=== PATIENT | male | born 1955 | race Caucasian/White ===

== ENCOUNTER 2018-06-17 19:39 | Emergency (ER) | payer SELFPAY ==
[~2018-06-17] VITALS: Ht 182.9 cm; Wt 106.6 kg
--- NOTE | 2018-06-17 20:32 | PHYS DOC ---
Past History Past Medical History: GERD, Hypertension, [place] Past Surgical History: Tonsillectomy Alcohol Use: Rarely Drug Use: None Adult General Chief Complaint Chief Complaint: Palpitations [facility] HPI 62-year-old male presents with palpitations. Patient states that he started feeling a hard or double beat in his chest about 2 hours ago. He has had palpitations in the past, and he was told that they were benign. He has not had them in a while. Today he was more concerned about it because he had some mid back discomfort about 30 minutes after they started and they're not going away as quickly as usual. The patient had some feeling of chills with a "hot head, and cold hands" while he was eating dinner. It has improved at this time. He believes the palpitations are decreasing in frequency. He did take an Ativan prior to arrival. The patient has a cardiac history. 2 stents placed 10 years ago. His last stress test was one year ago and was reported to be non- concerning. He denies overt chest pain or shortness of breath. He denies fever. Review of Systems Review of Systems Constitutional: Denies fever or chills [] Eyes: Denies change in visual acuity, redness, or eye pain [] HENT: Denies nasal congestion or sore throat [] Respiratory: Denies cough or shortness of breath [] Cardiovascular: No additional information not addressed in HPI [] GI: Denies abdominal pain, nausea, vomiting, bloody stools or diarrhea [] : Denies dysuria or hematuria [] Musculoskeletal: Denies back pain or joint pain [] Integument: Denies rash or skin lesions [] Neurologic: Denies headache, focal weakness or sensory changes [] Endocrine: Denies polyuria or polydipsia [] All other systems were reviewed and found to be within normal limits, except as documented in this note. Allergies Allergies Allergies Coded Allergies Type Severity Reaction Last Updated Verified fentanyl Allergy Severe 06/17/18 Yes Physical Exam Physical Exam Constitutional: Well developed, obese, well nourished, no acute distress, non- toxic appearance. [] HENT: Normocephalic, atraumatic, bilateral external ears normal, oropharynx moist, no oral exudates, nose normal. [] Eyes: PERRLA, EOMI, conjunctiva normal, no discharge. [] Neck: Normal range of motion, no tenderness, supple, no stridor. [] Cardiovascular:Heart rate regular rhythm, no murmur [] Lungs & Thorax: Bilateral breath sounds clear to auscultation [] Abdomen: Bowel sounds normal, soft, no tenderness, no masses, no pulsatile masses. [] Skin: Warm, dry, no erythema, no rash. [] Back: No tenderness, no CVA tenderness. [] Extremities: No tenderness, no cyanosis, no clubbing, ROM intact, no edema. [] Neurologic: Alert and oriented X 3, normal motor function, normal sensory function, no focal deficits noted. [] Psychologic: Affect normal, judgement normal, mood normal. [] Current Patient Data Vital Signs Vital Signs Date Time Temp Pulse Resp B/P (MAP) Pulse Ox O2 Delivery O2 Flow Rate FiO2 06/17/18 20:06 98.1 74 18 96 Room Air EKG EKG [] Radiology/Procedures Radiology/Procedures [] Impressions: Preliminary interpretation: No acute findings, no infiltrate, no pneumothorax, no focal consolidation Course & Med Decision Making Course & Med Decision Making Pertinent Labs and Imaging studies reviewed. (See chart for details) The only unusual beat seen in the patient's cardiac strips was the occasional PAC. They have decreased significant frequency. The patient states he is not feeling them anymore. The rest of his workup is negative. His chest x-ray is negative. His labs are unremarkable except for a glucose of just over 200. His troponin is negative. His EKG is needed for acute findings. He is stable for discharge at this time. [] Dragon Disclaimer Dragon Disclaimer This electronic medical record was generated, in whole or in part, using a voice recognition dictation system. Departure Departure: Referrals: PCP,KATHY (PCP) JAMIN BALL DO Jun 17, 2018 20:32
[2018-06-17 21:07] LABS: BASO # 0.1 x10^3/uL (0.0-0.2); BASO % 1 % (0-3); EOS # 0.2 x10^3/uL (0.0-0.7); EOS % 2 % (0-3); HEMOGLOBIN 16.8 g/dL (13.0-17.5); LYMPH # 2.5 x10^3/uL (1.0-4.8); LYMPH % 31 % (24-48); MEAN CORPUSCULAR HEMOGLOBIN 32 pg (25-35); MEAN CORPUSCULAR HGB CONC 36 g/dL (31-37); MEAN CORPUSCULAR VOLUME 89 fL (79-100); MONO # 0.8 x10^3/uL (0.0-1.1); MONO % 10 % (0-9); NEUT # 4.5 x10^3uL (1.8-7.7); NEUT % 56 % (31-73); PLATELET COUNT 211 x10^3/uL (140-400); RED BLOOD COUNT 5.31 x10^6/uL (4.30-5.70); RED CELL DISTRIBUTION WIDTH 13.5 % (11.5-14.5); WHITE BLOOD COUNT 8.1 x10^3/uL (4.0-11.0)
[2018-06-17 21:12] LABS: ALBUMIN 3.8 g/dL (3.4-5.0); ALBUMIN/GLOBULIN RATIO 1.2 (1.0-1.7); CALCIUM 9.5 mg/dL (8.5-10.1); CREATININE 1.2 mg/dL (0.7-1.3); GFR 61.3; POTASSIUM 3.7 mmol/L (3.5-5.1); TOTAL BILIRUBIN 0.7 mg/dL (0.2-1.0)
[2018-06-17 21:30] VITALS: BP 109/58
--- NOTE | 2018-06-18 02:13 | RAD ---
Chest AP portable at 1944: Reason for examination: Palpitations. The heart size is normal. Mediastinum is unremarkable. Lung machado are clear. No acute bony abnormalities are seen. Impression: No acute cardiopulmonary disease. Electronically signed by: Sanyd Palomino MD (06/18/2018 2:10 AM) [facility] [id number]
--- NOTE | 2018-06-18 06:09 | EKG ---
[address] [address] Test Date: 2018-06-17 Test Time: 19:50:26 Pat Name: MAIKEL PEREZ Department: Room: Gender: M [employer]el Se[employer]: : 1955 Requested By: JAMIN BALL Order Number: [id number] Reading MD: Mario Bolaños MD Measurements Intervals [place] Rate: 80 P: 28 ID: [id number] QRS: 78 QRSD: 84 T: 20 QT: 394 QTc: 458 Interpretive Statements SINUS RHYTHM PROBABLE PRIOR INFARCT Electronically Signed On 06-21-2018 12:06:38 CDT by Mario Bolaños MD
== END 2018-06-17 22:55 | disposition home or self-care (01) ==
LOC: ER 19:39
DX: R00.2 Palpitations (principal); M54.89 Other dorsalgia; K21.9 Gastro-esophageal reflux disease without esophagitis; I10 Essential (primary) hypertension; I25.2 Old myocardial infarction; Z88.8 Allergy status to other drugs, medicaments and biological substances
CPT/HCPCS: 36415; 71045; 80053; 84484; 85025; 93005; 99285

== ENCOUNTER 2020-07-11 20:32 | Emergency (ER) | payer SELFPAY ==
[~2020-07-11] VITALS: Ht 182.9 cm; Wt 104.5 kg
[2020-07-11 20:44] VITALS: BP 224/101
[2020-07-11] MEDS ORDERED: diazePAM 5 MG TABLET. PO ONE (20:45)
[2020-07-11] MEDS ORDERED: MORPHINE SULFATE 10 MG/ML SYRINGE. IM ONE (20:45)
[2020-07-11] MEDS ORDERED: methylPREDNISolone SOD SUCC PF 125 MG/2 ML VIAL. IM ONE (20:45)
[2020-07-11] MEDS ORDERED: NAPROXEN 500 MG TABLET PO ONE (20:45)
--- NOTE | 2020-07-11 20:55 | PHYS DOC ---
Past History Past Medical History: GERD, Hypertension, [place] (NISHANT MORALES APRN) Past Surgical History: Tonsillectomy (NISHANT MORALES APRN) Alcohol Use: Rarely Drug Use: None (NISHANT MORALES APRN) Adult General Chief Complaint Chief Complaint: BACK PAIN OR INJURY HPI HPI Patient is a 64-year-old male patient with previous history of low back pain currently on Robaxin who presents to the ED today complaining of 7-8 out of 10 left low back radiating to the left thigh that began yesterday. Patient denies any injuries but believes he could have pulled a muscle in his low back. Denies any loss of bowel/bladder function. Denies any numbness or tingling to bilateral lower extremities. He states he took his 's hydrocodone with minimal relief. (NISHANT MORALES APRN) Review of Systems Review of Systems Constitutional: Denies fever or chills [] Eyes: Denies change in visual acuity, redness, or eye pain [] HENT: Denies nasal congestion or sore throat [] Respiratory: Denies cough or shortness of breath [] Cardiovascular: No additional information not addressed in HPI [] GI: Denies abdominal pain, nausea, vomiting, bloody stools or diarrhea [] : Denies dysuria or hematuria [] Musculoskeletal: Reports left low back pain radiating to the left thigh Integument: Denies rash or skin lesions [] Neurologic: Denies headache, focal weakness or sensory changes [] All other systems were reviewed and found to be within normal limits, except as documented in this note. (NISHANT MORALES APRN) Current Medications Current Medications Current Medications Medications (Trade) Dose Ordered Sig/Renuka Start Time Stop Time Status Last Admin Dose Admin Diazepam (Valium) 5 mg 1X ONCE 07/11/20 20:45 07/11/20 20:48 DC Methylprednisolone Sodium Succinate (SOLU-Medrol 125MG VIAL) 125 mg 1X ONCE 07/11/20 20:45 07/11/20 20:48 DC Morphine Sulfate (Morphine 10mg Syringe) 5 mg 1X ONCE 20 20:45 07/11/20 20:48 DC Naproxen (Naprosyn) 500 mg 1X ONCE 07/11/20 20:45 07/11/20 20:48 DC (NISHANT MORALES APRN) Allergies Allergies Allergies Coded Allergies Type Severity Reaction Last Updated Verified fentanyl Allergy Severe 06/17/18 Yes (NISHANT MORALES APRN) Physical Exam Physical Exam Constitutional: Well developed, well nourished, no acute distress, non-toxic appearance. [] Abdomen: Bowel sounds normal, soft, no tenderness, no masses, no pulsatile masses. [] Skin: Warm, dry, no erythema, no rash. [] Back: Diffuse paraspinal muscle tenderness to the left lumbar spine, no midline lumbar spine tenderness, no CVA tenderness. Positive straight leg raise to the left lower extremity at 45 degrees. Extremities: No tenderness, no cyanosis, no clubbing, ROM intact, no edema. [] Neurologic: Alert and oriented X 3, normal motor function, normal sensory function, no focal deficits noted. [] Psychologic: Affect normal, judgement normal, mood normal. [] (NISHANT MORALES APRN) Current Patient Data Vital Signs Vital Signs Date Time Temp Pulse Resp B/P (MAP) Pulse Ox O2 Delivery O2 Flow Rate FiO2 07/11/20 20:44 97.5 88 18 224/101 (142) 94 Room Air (NISHANT MORALES APRN) EKG EKG [] (NISHANT MORALES APRN) Radiology/Procedures Radiology/Procedures [] (NISHANT MORALES APRN) Heart Score Risk Factors: Risk Factors: DM, Current or recent (<one month) smoker, HTN, HLP, family history of CAD, obesity. Risk Scores: Risk Factors: DM, Current or recent (<one month) smoker, HTN, HLP, family history of CAD, obesity. (NISHANT MORALES APRN) Course & Med Decision Making Course & Med Decision Making Pertinent Labs and Imaging studies reviewed. (See chart for details) This is a 64-year-old male patient presenting to the ED today with exacerbation of chronic low back pain. No known injury. Pain managed in the ED. Given prescription for pain medicine, follow-up with PCP next week. (NISHANT MORALES APRN) Dragon Disclaimer Dragon Disclaimer This electronic medical record was generated, in whole or in part, using a voice recognition dictation system. (NISHANT MORALES APRN) Departure Departure: Impression: Primary Impression: Low back pain Disposition: 01 DC HOME SELF CARE/HOMELESS Condition: STABLE Referrals: PCP,NO (PCP) follow up next week Patient Instructions: Back Pain, Adult, Sciatica, [id number] Additional Instructions: You were seen for back pain. Follow-up with your doctor next week. Take the prescribed medication as ordered. Scripts Methylprednisolone (MEDROL) 4 Mg Tab.ds.pk 1 PKG PO UD, #1 PKG Prov: MUTUNGNISHANT Castillo [employer] SUPERVIS[employer] 07/11/20 Hydrocodone/Acetaminophen (Hydrocodone-Acetamin 7.5-325) 1 Each Tablet 1 EACH PO Q6HRS for pain, #12 TAB Prov: NISHANT MORALES [employer] SUPER[employer] 07/11/20 Attending Co-Sign Attending Co-Sign The patient was seen and interviewed as well as examined at the bedside. The chart was reviewed. The case was discussed. Agree with the plan of care. (JOHNNIE PEREZ MD) Problem Qualifiers Primary Impression: Low back pain Chronicity: acute Back pain laterality: left Sciatica presence: with sciatica Sciatica laterality: sciatica of left side Qualified Codes: M54.42 - Lumbago with sciatica, left side NISHANT MORALES APRN Jul 11, 2020 20:55 JOHNNIE PEREZ MD Jul 12, 2020 08:20
[2020-07-11] MEDS ORDERED: HYDR-2763 PO (21:05)
[2020-07-11] MEDS ORDERED: METH4TAB2 PO (21:05)
--- NOTE | 2020-07-12 08:16 | PHYS DOC ---
General Chief Complaint: BACK PAIN OR INJURY Stated Complaint: BACK AND LEG PAIN NON INJURY Time Seen by MD: 08:15 History of Present Illness Allergies: Coded Allergies: fentanyl (Verified Allergy, Severe, 06/17/18) Attending Co-Sign Attending Co-Sign The patient was seen and interviewed as well as examined at the bedside. The chart was reviewed. The case was discussed. Agree with the plan of care. Attending Signature Attending Signature I have participated in the care of this patient and I have reviewed and agree with all pertinent clinical information above including history, exam, and recommendations. JOHNNIE PEREZ MD Jul 12, 2020 08:16
== END 2020-07-11 21:45 | disposition home or self-care (01) ==
LOC: ER 20:32
DX: M54.5 Low back pain (principal); K21.9 Gastro-esophageal reflux disease without esophagitis; I10 Essential (primary) hypertension; I25.2 Old myocardial infarction; Z90.89 Acquired absence of other organs; Z88.8 Allergy status to other drugs, medicaments and biological substances
CPT/HCPCS: 96372; 99284; J2270; J2930